=== PATIENT | female | born 1935 | race African-American/Black ===

== ENCOUNTER 2018-02-28 10:51 | Inpatient (IN) | payer OTHER ==
[~2018-02-28] VITALS: Ht 167.6 cm; Wt 94.4 kg
[2018-02-28] MEDS ORDERED: SODIUM CHLORIDE 0.9% 1000ML 1,000 ML IV STA (11:17)
[2018-02-28 11:41] LABS: BASOPHILS % 0.7 % (0.0-1.0); EOSINOPHILS # (AUTO) 0.1 (0.0-0.4); EOSINOPHILS % 1.4 % (0.0-6.0); HEMATOCRIT 45.7 % (34.2-44.1); LYMPHOCYTES # (AUTO) 1.8 (1.0-3.2); LYMPHOCYTES % 43.4 % (18.0-39.1); MEAN CORPUSCULAR HEMOGLOBIN 25.5 pg (28-32); MEAN CORPUSCULAR HGB CONC 32.8 g/dL (31-35); MEAN CORPUSCULAR VOLUME 77.6 fL (81-99); MONOCYTES # (AUTO) 0.6 (0.2-0.8); MONOCYTES % 14.9 % (4.4-11.3); NEUTROPHILS # (AUTO) 1.7 (2.1-6.9); NEUTROPHILS % 39.4 % (38.7-80.0); PLATELET COUNT 107 x10e3/uL (140-360); RED BLOOD COUNT 5.89 x10e6/uL (3.6-5.1); RED CELL DISTRIBUTION WIDTH 15.4 % (11.7-14.4)
[2018-02-28 12:02] LABS: ALANINE AMINOTRANSFERASE 9 IU/L (0-55); ALBUMIN 3.4 g/dL (3.5-5.0); ALBUMIN/GLOBULIN RATIO 0.9 (0.8-2.0); ALKALINE PHOSPHATASE 82 IU/L (40-150); AMYLASE 121 U/L (25-125); ANION GAP 11.8 mmol/L (8-16); BLOOD UREA NITROGEN 13 mg/dL (7-26); BUN/CREATININE RATIO 15 (6-25); CALCIUM 9.5 mg/dL (8.4-10.2); CARBON DIOXIDE 29 mmol/L (22-29); CHLORIDE 101 mmol/L (98-107); CREATINE KINASE 73 IU/L (29-168); CREATININE, SERUM 0.84 mg/dL (0.57-1.11); EST GLOMERULAR FILTRATION RATE > 60 ML/MIN (60-); GLUCOSE 121 mg/dL (74-118); LIPASE 517 U/L (8-78); POTASSIUM 3.8 mmol/L (3.5-5.1); SODIUM 138 mmol/L (136-145)
[2018-02-28 12:22] LABS: BILIRUBIN,URINE NEGATIVE (NEGATIVE); CLARITY,URINE CLEAR (CLEAR); COLOR,URINE YELLOW (YELLOW); KETONES,URINE NEGATIVE (NEGATIVE); LEUKOCYTE ESTERASE ,URINE NEGATIVE (NEGATIVE); NITRITE,URINE NEGATIVE (NEGATIVE); PROTEIN,URINE DIPSTICK NEGATIVE (NEGATIVE); URINE UROBILINOGEN 0.2 mg/dL (0.2 - 1)
[2018-02-28 12:35] LABS: EPITHELIAL CELLS,URINE RARE /LPF
[2018-02-28 12:51] LABS: INR 0.91; PROTHROMBIN TIME 13.1 seconds (11.9-14.5)
--- NOTE | 2018-02-28 14:54 | Diagnostic Imaging Report ---
Examination: Single AP view of the chest. COMPARISON: None. INDICATION: Pancreatitis DISCUSSION: Lungs are well-inflated. Retrocardiac airspace disease with loss of the medial hemidiaphragmatic contour. Otherwise clear lungs. Enlargement of the cardiac silhouette with tortuous thoracic aorta. No acute osseous abnormality. IMPRESSION: Retrocardiac airspace disease may reflect atelectasis or aspiration. Cardiomegaly without vascular decompensation. Signed by: Dr. Wilner Livingston M.D. on 02/28/2018 2:51 PM
--- NOTE | 2018-02-28 15:15 | Diagnostic Imaging Report ---
EXAMINATION: CT of the abdomen and pelvis with contrast. TECHNIQUE: Spiral CT images of the abdomen and pelvis were performed from the lung bases to the lesser trochanters after the intravenous administration of 100 cc of Isovue-370 and the oral administration of water. Coronal and sagittal reformatted images were obtained. COMPARISON: None. CLINICAL HISTORY:Pancreatitis, left upper quadrant pain DISCUSSION: ABDOMEN/PELVIS: LOWER THORAX:Partial left lower lobe collapse partially visualized. Trace left pleural effusion. HEPATOBILIARY: No focal hepatic lesion. No intrahepatic biliary ductal dilatation area of the gallbladder is unremarkable. SPLEEN: No splenomegaly. Small splenule adjacent to the lower pole. PANCREAS: Ill-defined hypoattenuating mass in the pancreatic head best seen on series 2 image 40 measures approximately 1.6 cm craniocaudal x 1.3 cm AP x 1.9 cm transverse and results in dilatation of the main pancreatic duct upstream from the lesion. The mass contacts the superior mesenteric vein with less than 180 degrees of encasement. The fat plane between the mass and the superior mesenteric artery appears preserved. No peripancreatic inflammation. ADRENALS: No adrenal nodules. KIDNEYS/URETERS: No hydronephrosis. 3-4 mm left renal calculus, nonobstructing. Multiple simple left renal cysts measuring up to 6 cm projecting from the lower pole. Additional subcentimeter hypoattenuating lesions are too small to further characterize though may represent additional small cysts. Subcentimeter hyperattenuating lesion projecting from the upper pole of the left kidney seen on series 2 image 20. PELVIC ORGANS/BLADDER: The urinary bladder is incompletely distended but otherwise unremarkable. Uterus is not identified and has presumably been removed. No adnexal mass. PERITONEUM/RETROPERITONEUM: Trace pelvic ascites, average attenuation 5-10 Hounsfield units. No pneumoperitoneum. LYMPH NODES: No pelvic sidewall, retroperitoneal, or mesenteric lymphadenopathy. VESSELS: There is atherosclerotic calcification of the abdominal aorta, major branch vessels, and iliac arterial systems, without abdominal aortic aneurysm. Portal vein and splenic vein are patent. GI TRACT: The large bowel shows no distention or wall thickening. There are innumerable sigmoid diverticula without adjacent inflammatory change or extraluminal gas. The appendix is normal. There is no small bowel dilatation to suggest obstruction. BONES AND SOFT TISSUE: No osseous destructive lesion. Multilevel degenerative disc changes and facet arthropathy of the lumbar spine. No focal soft tissue abnormalities. IMPRESSION: 1.9 cm ill-defined hypoattenuating mass in the pancreatic head is highly concerning for adenocarcinoma and results in upstream pancreatic ductal dilatation. Gastroenterology consultation for potential endoscopic ultrasound with tissue sampling is suggested. No CT findings of acute pancreatitis per clinical query. Trace nonspecific ascites. Partial left lower lobe collapse with trace left pleural effusion may relate to mucous plugging/aspiration. Nonobstructing left renal calculus. Scattered low-attenuation renal lesions, likely cysts, with one hyperattenuating lesion in the left upper pole, which should be followed closely on subsequent cross-sectional imaging examinations. Large bowel diverticulosis without evidence of diverticulitis. Signed by: Dr. Wilner Livingston M.D. on 02/28/2018 3:12 PM
[2018-02-28] MEDS ORDERED: SODIUM CHLORIDE 0.9% 100 ML 100 ML ONE (15:32)
[2018-02-28] MEDS ORDERED: IOPAMIDOL 370 MG/ML 200 ML INFUS..BTL INJ ONE (15:32)
[2018-02-28] MEDS ORDERED: ONDANSETRON HCL INJ 2 MG/ML VIAL IV PRN (16:45)
--- OUTSIDE RECORDS SUMMARY | 2018-02-28 17:01 | XMS REPORT | Clinical Summary ---
Author Author [facility] Organization [facility] Address Unknown Phone Unavailable Care Team Providers Care Case Loader Operator Name Role Phone PCP Unavailable Allergies No Known Allergies Medications End Date Status Medication Sig Dispensed Refills Start Date Active traMADol (ULTRAM) 50 mg Take 1 tablet 20 tablet 0 tabletIndications: by mouth 8 Generalized abdominal every 6 hours pain, Acute pancreatitis, as needed for unspecified complication Pain. status, unspecified pancreatitis type Active Problems Problem Noted Date Essential hypertension 02/22/2018 Carpal tunnel syndrome 02/22/2018 History of tubal ligation 02/22/2018 Encounters Care Team Description Date Type Specialty Emily Hurley MD Generalized abdominal pain (Primary Dx); Carpal tunnel syndrome of left wrist; Acute pancreatitis, unspecified complication status, unspecified pancreatitis type 02/22/2018 Emergency Emergency Medicine 02/22/2018 Travel after 02/27/2017 Social History Date Tobacco Use Types Packs/Day Years Used Started: 02/22/1953 Current Every Day Smoker Cigarettes 2 Smokeless Tobacco: Never Used Tobacco Cessation: Ready to Quit: Yes; Counseling Given: Yes Alcohol Use Drinks/Week oz/Week Comments Not Currently Sex Assigned at Date Recorded Not on file Industry Job Start Date Occupation Not on file Not on file Not on file Travel End Travel History Travel Start No recent travel history available. Last Filed Vital Signs Time Taken Vital Sign Reading 02/22/2018 12:00 PM CHARTER REPRESENTATIVE Blood Pressure 170/102 02/22/2018 12:00 PM CHARTER REPRESENTATIVE Pulse 52 02/22/2018 12:00 PM CHARTER REPRESENTATIVE Temperature 36.8 C (98.3 F) 02/22/2018 12:00 PM CHARTER REPRESENTATIVE Respiratory Rate 13 02/22/2018 12:00 PM CHARTER REPRESENTATIVE Oxygen Saturation 97% - Inhaled Oxygen - Concentration - Weight - - Height - - Body Mass Index - Plan of Treatment Health Maintenance Due Date Last Done Comments IMM Pneumococcal Age 65 2002 and Up IMM Influenza Seasonal 12/12/2017 Oct to May (>/=19 yrs) Procedures Comments Procedure Name Priority Date/Time Associated Diagnosis CT ABDOMEN AND PELVIS STAT 02/22/2018 Generalized abdominal CONTRAST 9:05 AM CHARTER REPRESENTATIVE pain XRAY NECK SOFT TISSUE STAT 02/22/2018 Carpal tunnel syndrome of 8:36 AM CHARTER REPRESENTATIVE left wrist TROPONIN I POC Routine 02/22/2018 7:10 AM CHARTER REPRESENTATIVE XRAY CHEST 1 VIEW STAT 02/22/2018 Generalized abdominal 6:35 AM CHARTER REPRESENTATIVE pain 12 LEAD EKG Routine 02/22/2018 5:43 AM CHARTER REPRESENTATIVE TSH Routine 02/22/2018 5:29 AM CHARTER REPRESENTATIVE HIV-1/HIV-2 ROUTINE Routine 02/22/2018 SCREENING 5:29 AM CHARTER REPRESENTATIVE UA CHEMISTRIES STAT 02/22/2018 5:29 AM CHARTER REPRESENTATIVE LIPASE STAT 02/22/2018 5:29 AM CHARTER REPRESENTATIVE COMPREHENSIVE METABOLIC STAT 02/22/2018 PANEL(DBIL NOT INCLUDED) 5:29 AM CHARTER REPRESENTATIVE CBC STAT 02/22/2018 5:29 AM CHARTER REPRESENTATIVE after 02/27/2017 Results * CT ABDOMEN AND PELVIS CONTRAST (02/22/2018 9:05 AM CHARTER REPRESENTATIVE) Impressions Performed At IMPRESSION: SMS 1.Stranding and trace fluid around the pancreatic tail are suspicious for pancreatitis. Note is made of severely elevated lipase in patient's EMR. 2.Nonobstructive 5 mm calculus at the left inferior pole collecting system. 3.Moderate degenerative changes of the lumbar spine. 4.Colonic diverticulosis. I have reviewed the study and agree with the findings in this report. Signed By: Tadeo Oropeza MD, 02/22/2018 9:41 AM Narrative Performed At EXAM: CT ABDOMEN AND PELVIS WITH CONTRAST SMS DATE: 02/22/2018 9:07 AM INDICATION: abd pain constipation nausea. Generalized abdominal pain ADDITIONAL INFORMATION: Lipase is 1072, upper limit of normal is 81. COMPARISON: None. TECHNIQUE: Volumetric CT of the abdomen and pelvis is acquired following the intravenous administration of contrast. Axial, coronal and sagittal images are provided. IV contrast: 100 ml [id number] Enteric contrast: None. DLP: 957.28 mGy-cm FINDINGS: Lines, tubes and hardware: None. Lower thorax: Linear atelectasis or scarring in the medial left lower lobe. No pleural effusion. Liver: Normal. Biliary tree: No intra- or extrahepatic biliary ductal dilation. Gallbladder: Normal. Pancreas: Fat stranding and trace fluid around the tail of the pancreas (image 30 series 3). Mild prominence of the pancreatic duct, measuring 3 mm. Spleen: Normal. Small splenule seen on image 29 series 3. Adrenals: Left abnormal gland is thickened, with preserved morphology. Right adrenal gland appears normal. Kidneys and ureters: Simple cysts in bilateral kidneys, measuring up to 7.6 cm CC in the left kidney. 5 mm nonobstructive calculus in the left lower pole collecting system (image 34 series 3). Bladder: Normal. Reproductive organs: Uterus is surgically absent. No adnexal abnormalities. Gastrointestinal tract: Stomach: Normal. Small bowel: Normal. Colon: Sigmoid colonic diverticula are present. Appendix: Normal (image 69 series 3). Peritoneum, mesentery and retroperitoneum: No free air, ascites or loculated fluid. Lymph nodes: Normal. Vasculature: Aorta and branches: Normal. IVC and veins: Normal. Portal vasculature: Normal. Bones: No acute abnormality. Moderate degenerative changes in the lumbar spine. Grade 1 anterolisthesis of L4 on L5, and of L5 on S1. Severe bilateral facet hypertrophy at L3-4, L4-5, L5-S1. Soft tissues: Normal. Procedure Note Interface, Rad/Mammog In - 02/22/2018 9:46 AM CHARTER REPRESENTATIVE EXAM: CT ABDOMEN AND PELVIS WITH CONTRAST DATE: 02/22/2018 9:07 AM INDICATION: abd pain constipation nausea. Generalized abdominal pain ADDITIONAL INFORMATION: Lipase is 1072, upper limit of normal is 81. COMPARISON: None. TECHNIQUE: Volumetric CT of the abdomen and pelvis is acquired following the intravenous administration of contrast. Axial, coronal and sagittal images are provided. IV contrast: 100 ml [id number] Enteric contrast: None. DLP: 957.28 mGy-cm FINDINGS: Lines, tubes and hardware: None. Lower thorax: Linear atelectasis or scarring in the medial left lower lobe. No pleural effusion. Liver: Normal. Biliary tree: No intra- or extrahepatic biliary ductal dilation. Gallbladder: Normal. Pancreas: Fat stranding and trace fluid around the tail of the pancreas (image 30 series 3). Mild prominence of the pancreatic duct, measuring 3 mm. Spleen: Normal. Small splenule seen on image 29 series 3. Adrenals: Left abnormal gland is thickened, with preserved morphology. Right adrenal gland appears normal. Kidneys and ureters: Simple cysts in bilateral kidneys, measuring up to 7.6 cm CC in the left kidney. 5 mm nonobstructive calculus in the left lower pole collecting system (image 34 series 3). Bladder: Normal. Reproductive organs: Uterus is surgically absent. No adnexal abnormalities. Gastrointestinal tract: Stomach: Normal. Small bowel: Normal. Colon: Sigmoid colonic diverticula are present. Appendix: Normal (image 69 series 3). Peritoneum, mesentery and retroperitoneum: No free air, ascites or loculated fluid. Lymph nodes: Normal. Vasculature: Aorta and branches: Normal. IVC and veins: Normal. Portal vasculature: Normal. Bones: No acute abnormality. Moderate degenerative changes in the lumbar spine. Grade 1 anterolisthesis of L4 on L5, and of L5 on S1. Severe bilateral facet hypertrophy at L3-4, L4-5, L5-S1. Soft tissues: Normal. IMPRESSION IMPRESSION: 1. Stranding and trace fluid around the pancreatic tail are suspicious for pancreatitis. Note is made of severely elevated lipase in patient's EMR. 2. Nonobstructive 5 mm calculus at the left inferior pole collecting system. 3. Moderate degenerative changes of the lumbar spine. 4. Colonic diverticulosis. I have reviewed the study and agree with the findings in this report. Signed By: Tadeo Oropeza MD, 02/22/2018 9:41 AM Performing Organization Address City/State/Zipcode Phone Number SMS * XRAY NECK SOFT TISSUE (02/22/2018 8:36 AM CHARTER REPRESENTATIVE) Impressions Performed At IMPRESSION: SMS 1.No acute abnormality identified in the cervical spine, limited by modality. 2.Moderate degenerative changes. Complete evaluation of the cervical spine including neural foramina can be performed with nonemergent MRI. Signed By: Tadeo Oropeza MD, 02/22/2018 8:40 AM Narrative Performed At EXAM: XR NECK SOFT TISSUES 2 VIEWS SMS DATE: 02/22/2018 8:36 AM INDICATION: Neck stiffness/left arm pain+numbness. Carpal tunnel syndrome of left wrist COMPARISON: None TECHNIQUE:AP and lateral radiographs of the neck soft tissues FINDINGS: Prevertebral soft tissue contours are within normal limits. There is no tracheal narrowing or deviation. No radiopaque foreign body or abnormal calcification is identified. Multilevel disc space narrowing and marginal osteophyte formation. Moderate multilevel bilateral facet hypertrophy. Procedure Note Interface, Rad/Mammog In - 02/22/2018 8:45 AM CHARTER REPRESENTATIVE EXAM: XR NECK SOFT TISSUES 2 VIEWS DATE: 02/22/2018 8:36 AM INDICATION: Neck stiffness/left arm pain+numbness. Carpal tunnel syndrome of left wrist COMPARISON: None TECHNIQUE: AP and lateral radiographs of the neck soft tissues FINDINGS: Prevertebral soft tissue contours are within normal limits. There is no tracheal narrowing or deviation. No radiopaque foreign body or abnormal calcification is identified. Multilevel disc space narrowing and marginal osteophyte formation. Moderate multilevel bilateral facet hypertrophy. IMPRESSION IMPRESSION: 1. No acute abnormality identified in the cervical spine, limited by modality. 2. Moderate degenerative changes. Complete evaluation of the cervical spine including neural foramina can be performed with nonemergent MRI. Signed By: Tadeo Oropeza MD, 02/22/2018 8:40 AM Performing Organization Address City/State/[facility] [[email or web address] Phone Number SMS * TROPONIN I POC (02/22/2018 7:10 AM CHARTER REPRESENTATIVE) Troponin POC 0.01 0.00 - 0.08 ng/mL [facility] 1 Performing Organization Address [facility] [[email or web address] Phone Number MISYS [facility] 1 * XRAY CHEST 1 VIEW (02/22/2018 6:35 AM CHARTER REPRESENTATIVE) Impressions Performed At IMPRESSION: SMS 1. Mild cardiomegaly 2. Hyperinflation of the lung field and left lower lung field platelike atelectasis 3. Otherwise, no acute cardiac or pulmonary pathology is identified in the chest. Signed By: Tucker Back MD, 02/22/2018 6:41 AM Narrative Performed At EXAM: XR CHEST 1 VIEW [facility] DATE:02/22/20186:28 AM INDICATION: abd pain Generalized abdominal pain COMPARISON: None similar TECHNIQUE: Portable semi-erect AP view DISCUSSION: Lines/tubes/devices: None Heart and mediastinum: The cardiac silhouette is slightly enlarged. The thoracic aorta is tortuous. Lungs and pleura: There is hyperinflation of the lung cho. The lung cho are clear of consolidation or effusion. There is platelike atelectasis in the left lower lung field. Pulmonary vascularity is normal. Bones/soft tissues: There is moderate spur formation of the dorsal vertebrae. There are degenerative changes involving the right shoulder. Upper abdomen: Unremarkable Procedure Note Interface, Rad/Mammog In - 02/22/2018 7:07 AM CHARTER REPRESENTATIVE EXAM: XR CHEST 1 VIEW DATE: 02/22/2018 6:28 AM INDICATION: abd pain Generalized abdominal pain COMPARISON: None similar TECHNIQUE: Portable semi-erect AP view DISCUSSION: Lines/tubes/devices: None Heart and mediastinum: The cardiac silhouette is slightly enlarged. The thoracic aorta is tortuous. Lungs and pleura: There is hyperinflation of the lung cho. The lung cho are clear of consolidation or effusion. There is platelike atelectasis in the left lower lung field. Pulmonary vascularity is normal. Bones/soft tissues: There is moderate spur formation of the dorsal vertebrae. There are degenerative changes involving the right shoulder. Upper abdomen: Unremarkable IMPRESSION IMPRESSION: 1. Mild cardiomegaly 2. Hyperinflation of the lung field and left lower lung field platelike atelectasis 3. Otherwise, no acute cardiac or pulmonary pathology is identified in the chest. Signed By: Tucker Back MD, 02/22/2018 6:41 AM Performing Organization Address City/State/Zipcode Phone Number [facility] * 12 LEAD EKG (02/22/2018 5:43 AM CHARTER REPRESENTATIVE) [facility] Test Date:2018-02-22 Pat Name: SOLO SAEZ Department: 6520 Room: Gender: F Flue Gas Analyst: [id number] :1936-0 06-05 Requested By: EMILY Brady Order Number: [id number] Natalie MD: Kvng CROFT Measurements Intervals Crane Rate: 55 P:3 WA: 180 QRS: -10 QRSD: 95 T:121 QT: 415 QTc:398 Interpretive Statements SINUS BRADYCARDIA Poor anterior R wave progression MODERATE T-WAVE ABNORMALITY, CONSIDER LATERAL ISCHEMIA Abnormal ECG Electronically Signed On 02-22-2018 9:45:15 CHARTER REPRESENTATIVE by Kvng CROFT Performing Organization Address [facility] [[email or web address] Phone Number SMS * HIV-1/HIV-2 ROUTINE SCREENING (02/22/2018 5:29 AM CHARTER REPRESENTATIVE) HIV-1/HIV-2 Negative NEG [facility] Performing Organization Address [facility] [[email or web address]]code Phone Number MISMICK [facility] * COMPREHENSIVE METABOLIC PANEL(DBIL NOT INCLUDED) (02/22/2018 5:29 AM CHARTER REPRESENTATIVE) Albumin 3.9 3.7 - 5.3 g/dL [facility] 1 Calcium 9.9 8.6 - 10.3 mg/dL [facility] 1 CO2 29 21 - 31 mmol/L [facility] 1 Chloride 101 98 - 107 mmol/L [facility] 1 Creatinine 0.90 0.6 - 1.2 mg/dL [facility] 1 Glucose 124 (H) 70 - 110 mg/dL [facility] 1 Alk Phos 86 34 - 104 U/L [facility] 1 Potassium 3.9 3.5 - 5.1 mmol/L [facility] 1 Sodium 136 136 - 145 mmol/L [facility] 1 ALT 9 7 - 52 U/L [facility] 1 AST 12 (L) 13 - 39 U/L [facility] 1 Urea Nitrogen 19 7 - 25 mg/dL [facility] 1 T Bilirubin 0.3 0.2 - 1.0 mg/dL [facility] 1 T Protein 6.8 6.4 - 8.2 g/dL [facility] 1 GFR, Estimated >60 mL/min/1.73 m2 [facility] 1 GFR, Estim, >60 mL/min/1.73 m2 [facility] Afr-Am [facility] 1 Anion Gap 6 [facility] 1 Specimen Blood Performing Organization Address [facility] [[email or web address] Phone Number MISYS [facility] 1 * TSH (02/22/2018 5:29 AM CHARTER REPRESENTATIVE) TSH 1.85 0.57 - 3.74 uIU/mL [facility] 1 Performing Organization Address City/[facility]/Zipcode Phone Number MISYS [facility] 1 * UA CHEMISTRIES (02/22/2018 5:29 AM CHARTER REPRESENTATIVE) Color Yellow [facility] 4 Clarity Clear [facility] 4 Spec Wadley 1.020 1.001 - 1.035 [facility] 4 pH 6.0 5 - 8 [facility] 4 Protein 1+ (A) NEG [facility] 4 Glucose Negative NEG [facility] 4 Ketone Negative NEG [facility] 4 Bilirubin Negative NEG [facility] 4 Nitrate Negative NEG [facility] 4 Urobilinogen 1.0 0.2 - 1.0 EU/dL [facility] 4 Leukocyte Negative NEG [facility] 4 Blood Negative NEG [facility] 4 RBC 2 0 - 4 /HPF [facility] 4 WBC 1 0 - 5 /HPF [facility] 4 Bacteria Few [facility] 4 Epithelial Cell 2 /HPF [facility] 4 Mucous Present [facility] 4 Hyaline Cast 17 /LPF [facility] 4 Specimen Urine Performing Organization Address [facility] [[email or web address]]code Phone Number [facility] 4 * LIPASE (02/22/2018 5:29 AM CHARTER REPRESENTATIVE) Lipase 1,072 (H) 11 - 81 U/L [facility] 1 Specimen Blood Performing Organization Address [facility] [[email or web address]]code Phone Number [facility] 1 * CBC (02/22/2018 5:29 AM CHARTER REPRESENTATIVE) WBC 6.1 4.5 - 11.0 K/uL [facility] 2 RBC 5.88 (H) 4.20 - 5.40 M/uL [facility] 2 Hemoglobin 14.8 12.0 - 16.0 g/dL [facility] 2 Hematocrit 46.4 37.0 - 47.0 % [facility] 2 MCV 79 (L) 82 - 92 fL [facility] 2 MCH 25.2 (L) 27.0 - 32.0 pg [facility] 2 MCHC 31.9 (L) 32.0 - 36.0 g/dL [facility] 2 RDW 44.9 36.4 - 46.3 fL [facility] 2 Platelet 134 (L) 150 - 400 K/uL [facility] 2 Mean Platelet 12.2 9.4 - 12.4 fL [facility] Volume [facility] 2 Percent NRBC 0.0 [facility] 2 Absolute NRBC 0.00 [facility] 2 Specimen Blood Performing Organization Address City/State/Zipcode Phone Number [facility] 2 after 02/27/2017 Insurance Type Payer Benefit Subscriber ID Effective Phone Address Plan / Dates Group [facility] [place]-P [phone] [facility] [id number] [address] [place] [address]
--- OUTSIDE RECORDS SUMMARY | 2018-02-28 17:01 | XMS REPORT ---
[facility] Address Unknown Phone Unavailable Care Team Providers Care Corporate Travel Expert Name Role Phone Manny NUÑEZ Unavailable Unavailable Problems This patient has no known problems. Allergies, Adverse Reactions, Alerts This patient has no known allergies or adverse reactions. Medications This patient has no known medications. Encounters Start Date/Time End Date/Time Encounter Type Admission Type Attending [facility] Care Department Encounter ID 2018-02-22 08:23:46 2018-02-22 08:23:46 Emergency [facility] [id number] 2018-02-22 07:53:28 2018-02-22 07:53:28 Emergency [facility] [id number] 2018-02-22 05:52:24 2018-02-22 05:52:24 Emergency [facility] [id number] 2018-02-22 04:51:11 2018-02-22 04:51:11 Emergency [facility] [id number] Results Test Description Test Time Test Comments Text Results Atomic Results Result Comments CT ABDOMEN/PELVIS W 2018-02-28 14:55:00 [place] [id number] Patient Name: SOLO SHARIF MR #: [id number] : 1935 Age/Sex: 82/F Req #: [id number] Adm Physician: Ordered by: CORINE BHATT JAVA GROOVY DEVELOPER Report #: [id number] Location: ER Room/Bed: Procedure: [id number] CT/CT ABDOMEN/PELVIS W Exam Date: 02/28/18 Exam Time: 1330 REPORT STATUS: Signed EXAMINATION: CT of the abdomen and pelvis with contra st. TECHNIQUE: Spiral CT images of the abdomen and pelvis were performed from the lung bases to the lesser trochanters after the intravenous administration of 100 cc of Isovue-370 and the oral administration of water. Coronal and sagittal reformatted images were obtained. COMPARISON: None. CLINICAL HISTORY:Pancreatitis, left upper quadrant pain DISCUSSION: ABDOMEN/PELVIS: LOWER THORAX:Partial left lower lobe collapse partially visualized. Trace left pleural effusion. HEPATOBILIARY: No focal hepatic lesion. No intrahepatic biliary ductal dilata tion area of the gallbladder is unremarkable. SPLEEN: No splenomegaly. Small splenule adjacent to the lower pole. PANCREAS: Ill- defined hypoattenuating mass in the pancreatic head best seen on series 2 image 40 measures approximately 1.6 cm craniocaudal x 1.3 cm AP x 1.9 cm transverse and results in dilatation of the main pancreatic duct upstream from the lesion. The mass contacts the superior mesenteric vein with less than 180 degrees of encasement. The fat plane between the mass and the superior mesenteric artery appears preserved. No peripancreatic inflammation. ADRENALS: No adrenal nodules. KIDNEYS/URETERS: No hydronephrosis. 3-4 mm left renal calculus, nonobstructing. Multiple simple left renal cysts measuring up to 6 cm projecting from the lower pole. Additional subcentimeter hypoattenuating lesions are too small to further characterize though may represent additional small cysts. Subcentimeter hyperattenuating lesion projecting from the upper pole of the left kidney seen on series 2 image 20. PELVIC ORGANS/BLADDER: The urinary bladder is incompletely distended but otherwise unremarkable. Uterus is not identified and has presumably been removed. No adnexal mass. PERITONEUM/RETROPERITONEUM: Trace pelvic ascites, average attenuation 5-10 Hounsfield units. No pneumoperitoneum. LYMPH NODES: No pelvic sidewall, retroperitoneal, or mesenteric lymphadenopathy. VESSELS: There is atherosclerotic calcification of the abdominal aorta, major branch vessels, and iliac arterial systems, without abdominal aortic aneurysm. Portal vein and splenic vein are patent. GI TRACT: The large bowel shows no distention or wall thickening. There are innumerable sigmoid diverticula without adjacent inflammatory change or extraluminal gas. The appendix is normal. There is no small bowel dilatation to suggest obstruction. BONES AND SOFT TISSUE: No osseous destructive lesion. Multilevel degenerative disc changes and facet arthropathy of the lumbar spine. No focal soft tissue abnormalities. IMPRESSION: 1.9 cm ill-defined hypoattenuating mass in the pancreatic head is highly concerning for adenocarcinoma and results in upstream pancreatic ductal dilatation. Gastroenterology consultation for potential endoscopic ultrasound with tissue sampling is suggested. No CT findings of acute pancreatitis per clinical query. Trace nonspecific ascites. Partial left lower lobe collapse with trace left pleural effusion may relate to mucous plugging/aspiration. Nonobstructing left renal calculus. Scattered low-attenuation renal lesions, likely cysts, with one hyperattenuating lesion in the left upper pole, which should be followed closely on subsequent cross-sectional imaging examinations. Large bowel diverticulosis without evidence of diverticulitis. Signed by: Dr. Maryann Luciano M.D. on 02/28/2018 3:12 PM Dictated By: MARYANN LUCIANO MD 1512 Transcribed By: GREGORY on 02/28/18 1512 COPY TO: CORINE BHATT JAVA GROOVY DEVELOPER CHEST SINGLE (PORTABLE) 2018-02-28 14:50:00 [place] [address] Patient Name: SOLO SHARIF MR #: [id number] : 1935 Age/Sex: 82/F Req #: [id number] Adm Physician: Ordered by: CORINE BHATT JAVA GROOVY DEVELOPER Report #: [id number] Location: ER Room/Bed: Procedure: [id number] DX/CHEST SINGLE (PORTABLE) Exam Date: 02/28/18 Exam Time: 1400 REPORT STATUS: Signed Examination: Single AP view of the chest. CO MPARISON: None. INDICATION: Pancreatitis DISCUSSION: Lungs are well-inflated. Retrocardiac airspace disease with loss of the medial hemidiaphragmatic contour. Otherwise clear lungs. Enlargement of the cardiac silhouette with tortuous thoracic aorta. No acute osseous abnormality. IMPRESSION: Retrocardiac airspace disease may reflect atelectasis or aspiration. Cardiomegaly without vascular decompensation. Signed by: Dr. Maryann Luciano M.D. on 02/28/2018 2:51 PM Dictated By: MARYANN LUCIANO MD 1451 Transcribed By: GREGORY on 02/28/18 145 COPY TO: CORINE BHATT NP
[2018-02-28] MEDS ORDERED: ATENOLOL50 MG PO (17:09)
[2018-02-28] MEDS ORDERED: AMLODIPINE BESYL5 MG PO (17:09)
[2018-02-28] MEDS ORDERED: LISINOPRIL-HCT1 EAC1 PO (17:09)
[2018-02-28] MEDS: SODIUM CHLORIDE 0.9% 1000ML 1,000 ML IV SCH ×2 (17:25→23:00)
[2018-02-28] MEDS ORDERED: CEFTRIAXONE SOD 1 GM VIAL IV SCH (17:30)
--- NOTE | 2018-02-28 17:30 | NUR ---
DR. MCFARLAND HERE TO EVAL PT.
[2018-02-28] MEDS: AZITHROMYCIN 500MG/NS 250 ML 250 ML IV SCH (18:09)
[2018-02-28] MEDS: CEFTRIAXONE SOD 1 GM/NS 50 ML 50 ML IV SCH (18:09)
--- NOTE | 2018-02-28 18:10 | NUR ---
RT notified of ordered breathing treatments
[2018-02-28] MEDS: ALBUTEROL/IPRATROPIUM 3 ML NEB NEB SCH ×2 (18:55→22:45)
--- NOTE | 2018-02-28 19:00 | NUR ---
Walking rounds with SHASHI Flores. Patient in no distress at this time.
--- NOTE | 2018-02-28 20:40 | NUR ---
Patient arrived to the unit to Rm. 294 via wheelchair escorted by ER transport. Patient alert and oriented x3. No distress or discomfort noted. Received phone call from ED nurse (SHASHI Flores) to inform that she spoke to Dr. Montoya (admitting MD) that patient needs to take all her home meds tonight. Order acknowledged by receiving nurse (Renzo).
[2018-02-28] MEDS ORDERED: HYDRALAZINE HCL 20 MG/ML VIAL IV PRN (20:45)
[2018-02-28] MEDS: HYDROCHLOROTHIAZIDE 25 MG TAB PO SCH (21:15)
[2018-02-28] MEDS: ATENOLOL 50 MG TAB PO SCH (21:19)
[2018-02-28] MEDS: LISINOPRIL 20 MG TAB PO SCH (21:19)
[2018-02-28] MEDS: AMLODIPINE BESYLATE 5 MG TAB PO SCH (21:19)
[2018-02-28 21:30] VITALS: BP 183/86
--- NOTE | 2018-02-28 21:30 | NUR ---
Patient arrived to unit via wheelchair from ED as new admit. Patient alert and oriented x3. Ambulatory with standby assist. Patient denies any pain or discomfort at this time. BP elevated at 183/86. Dr. Montoya aware and requested for patient to have home meds (cardiac meds) tonight. Nurse (Renzo) to medicate patient and will monitor pt closely.
[2018-02-28 22:00] VITALS: BP 183/86
[2018-02-28 22:23] VITALS: BP 177/78
--- NOTE | 2018-02-28 22:23 | NUR ---
BP re-checked after pt received BP meds (Atenolol, Norvasc, Lisinopril, HCTZ). BP at this time was 177/78 and seem trending down. Will keep monitor BP of patient.
[2018-03-01] VITALS (9 sets, daily range): BP systolic 130–180; BP diastolic 60–84
[2018-03-01 05:54] LABS: BASOPHILS % 0.9 % (0.0-1.0); EOSINOPHILS # (AUTO) 0.1 (0.0-0.4); EOSINOPHILS % 1.3 % (0.0-6.0); HEMATOCRIT 43.3 % (34.2-44.1); HEMOGLOBIN 14.2 g/dL (12.0-16.0); LYMPHOCYTES # (AUTO) 1.6 (1.0-3.2); LYMPHOCYTES % 36.4 % (18.0-39.1); MEAN CORPUSCULAR HEMOGLOBIN 25.2 pg (28-32); MEAN CORPUSCULAR HGB CONC 32.8 g/dL (31-35); MEAN CORPUSCULAR VOLUME 76.8 fL (81-99); MONOCYTES # (AUTO) 0.5 (0.2-0.8); MONOCYTES % 11.3 % (4.4-11.3); NEUTROPHILS # (AUTO) 2.2 (2.1-6.9); NEUTROPHILS % 49.9 % (38.7-80.0); PLATELET COUNT 74 x10e3/uL (140-360); RED BLOOD COUNT 5.64 x10e6/uL (3.6-5.1); RED CELL DISTRIBUTION WIDTH 15.4 % (11.7-14.4)
[2018-03-01 06:09] LABS: ANION GAP 14.3 mmol/L (8-16); BLOOD UREA NITROGEN 8 mg/dL (7-26); BUN/CREATININE RATIO 11 (6-25); CALCIUM 9.1 mg/dL (8.4-10.2); CARBON DIOXIDE 23 mmol/L (22-29); CHLORIDE 102 mmol/L (98-107); CREATININE, SERUM 0.72 mg/dL (0.57-1.11); EST GLOMERULAR FILTRATION RATE > 60 ML/MIN (60-); GLUCOSE 134 mg/dL (74-118); LIPASE 510 U/L (8-78); POTASSIUM 3.3 mmol/L (3.5-5.1); SODIUM 136 mmol/L (136-145)
--- NOTE | 2018-03-01 07:40 | NUR ---
PATIENT IN BED RESTING WITH NO RESPIRATORY DISTRESS. IV FLUID INFUSING ORDERED. BED IN LOWER POSITION, CALL LIGHT AT REACH.
[2018-03-01] MEDS: ALBUTEROL/IPRATROPIUM 3 ML NEB NEB SCH ×4 (08:30→23:10)
[2018-03-01] MEDS ORDERED: AMLODIPINE BESYLATE 5 MG TAB PO SCH (09:00)
[2018-03-01] MEDS ORDERED: HYDROCHLOROTHIAZIDE 25 MG TAB PO SCH (09:00)
[2018-03-01] MEDS ORDERED: ENOXAPARIN SOD INJ 40 MG/0.4 ML SYR SC SCH (09:00)
[2018-03-01] MEDS ORDERED: LISINOPRIL 20 MG TAB PO SCH (09:00)
[2018-03-01] MEDS: HYDROCHLOROTHIAZIDE 25 MG TAB PO SCH (09:10)
[2018-03-01] MEDS: AMLODIPINE BESYLATE 5 MG TAB PO SCH (09:10)
[2018-03-01] MEDS: ATENOLOL 50 MG TAB PO SCH (09:11)
[2018-03-01] MEDS: LISINOPRIL 20 MG TAB PO SCH ×2 (09:11→17:47)
[2018-03-01] MEDS ORDERED: POTASSIUM CHLORIDE 20 MEQ TAB CR PO NR (10:30)
--- NOTE | 2018-03-01 11:20 | NUR ---
MD NOTIFIED OF ABNORMAL LAB RESULT, NEW ORDER RECEIVED AND IMPLEMENTED.
--- NOTE | 2018-03-01 15:40 | NUR ---
PATIENT ASSISTED WITH SHOWER, BACK TO BED WITH CALL LIGHT AT REACH. FAMILY MEMBERS AT BED SIDE.
[2018-03-01] MEDS: AZITHROMYCIN 500MG/NS 250 ML 250 ML IV SCH (17:30)
[2018-03-01] MEDS: CEFTRIAXONE SOD 1 GM/NS 50 ML 50 ML IV SCH (17:48)
--- NOTE | 2018-03-01 19:15 | NUR ---
Received patient from day nurse, patient is alert and oriented x4, patient assessed, patient denies any concerns at this time, safety and fall precautions maintained as per hospital protocol: bed in lowest position and locked, needed items beside and call galvin placed within patient reach, patient instructed to use it to call nurses for any assistance needed, patient with yellow socks and falling star sign at the door to encouraged staff members to offer maximum help to patient.
--- NOTE | 2018-03-01 21:01 | NUR ---
Azithromycin iv was signed at this time but was administered by day nurse.
[2018-03-02] VITALS: BP 109/65
[2018-03-02 04:00] VITALS: BP 154/76
[2018-03-02 06:32] LABS: ANION GAP 13.6 mmol/L (8-16); BLOOD UREA NITROGEN 7 mg/dL (7-26); BUN/CREATININE RATIO 9 (6-25); CALCIUM 9.2 mg/dL (8.4-10.2); CARBON DIOXIDE 26 mmol/L (22-29); CHLORIDE 100 mmol/L (98-107); CREATININE, SERUM 0.79 mg/dL (0.57-1.11); EST GLOMERULAR FILTRATION RATE > 60 ML/MIN (60-); GLUCOSE 122 mg/dL (74-118); MAGNESIUM 2.2 MG/DL (1.3-2.1); POTASSIUM 3.6 mmol/L (3.5-5.1); SODIUM 136 mmol/L (136-145)
--- NOTE | 2018-03-02 06:39 | NUR ---
Dr. Montoya made aware of positive blood cultures. Ordered one time order of 1gm vancomycin
[2018-03-02 06:46] LABS: BASOPHILS % 0.9 % (0.0-1.0); EOSINOPHILS # (AUTO) 0.1 (0.0-0.4); EOSINOPHILS % 1.8 % (0.0-6.0); HEMATOCRIT 41.3 % (34.2-44.1); HEMOGLOBIN 13.8 g/dL (12.0-16.0); LYMPHOCYTES # (AUTO) 2.3 (1.0-3.2); LYMPHOCYTES % 49.6 % (18.0-39.1); MEAN CORPUSCULAR HEMOGLOBIN 25.6 pg (28-32); MEAN CORPUSCULAR HGB CONC 33.4 g/dL (31-35); MEAN CORPUSCULAR VOLUME 76.6 fL (81-99); MONOCYTES # (AUTO) 0.5 (0.2-0.8); MONOCYTES % 10.8 % (4.4-11.3); NEUTROPHILS # (AUTO) 1.7 (2.1-6.9); NEUTROPHILS % 36.9 % (38.7-80.0); PLATELET COUNT 101 x10e3/uL (140-360); RED BLOOD COUNT 5.39 x10e6/uL (3.6-5.1); RED CELL DISTRIBUTION WIDTH 15.7 % (11.7-14.4)
[2018-03-02] MEDS: ALBUTEROL/IPRATROPIUM 3 ML NEB NEB SCH ×2 (07:00→14:50)
[2018-03-02] MEDS ORDERED: VANCOMYCIN 1GM/NS 250 ML 250 ML IV ONE (07:00)
--- NOTE | 2018-03-02 07:00 | NUR ---
patient endorsed to next shift for continuity of care.
--- NOTE | 2018-03-02 07:00 | NUR ---
patient endorsed to next shift for continuity of care.
--- NOTE | 2018-03-02 07:28 | NUR ---
PATIENT SITTING UP IN BED WATCHING TV, NO COMPLAIN VOICED. ALL PERSONAL ITEMS CLOSE TO PATIENT. BED IN LOWER POSITION, CALL LIGHT AT REACH.
[2018-03-02 07:35] VITALS: BP 157/82
[2018-03-02 07:47] VITALS: BP 157/82
[2018-03-02] MEDS ORDERED: AMLODIPINE BESYLATE 5 MG TAB PO SCH (09:00)
[2018-03-02] MEDS ORDERED: AMLODIPINE BESYLATE 10 MG TAB PO SCH (09:00)
[2018-03-02] MEDS: LISINOPRIL 20 MG TAB PO SCH ×2 (09:25→17:37)
[2018-03-02 10:27] LABS: ANISOCYTOSIS SLIGHT; HYPOCHROMASIA SLIGHT; PLATELET ESTIMATE SLIGHTLY DECREASED; PLATELET MORPHOLOGY COMMENT NORMAL; RBC MORPHOLOGY COMMENT NORMAL; TARGET CELLS FEW
[2018-03-02 11:34] VITALS: BP 151/68
--- NOTE | 2018-03-02 15:24 | NUR ---
PATIENT ASSISTED TO THE RESTROOM AND BACK TO BED. CALL LIGHT AT REACH.
[2018-03-02 15:45] VITALS: BP 136/68
--- NOTE | 2018-03-02 17:15 | Discharge Summary ---
PRIMARY CARE DOCTOR: Dr. Brandy Benitez with [facility]. FINAL DIAGNOSIS: Pneumonia. SECONDARY DIAGNOSES 1. Mild chronic obstructive pulmonary disease exacerbation, resolved. 2. 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 3. Chronic thrombocytopenia, stable. 4. Hypertension, acceptable. CONSULTANTS: None. PROCEDURES/STUDIES PERFORMED: CT. HISTORY: Per H&P. HOSPITAL COURSE: Patient was put on IV Rocephin and azithromycin. She did well. Smoking cessation was advised. Patient will go home on Levaquin for 5 more days to complete a 1-week course. Her blood culture on admission 1 out of 2 bottles came back gram-positive cocci in clusters two days later. This is most likely contaminant. I have called microbiology. They will update me once this has finalized. I did empirically give her one dose of IV vancomycin. As far as her pancreatic tumor, I have communicated with her primary care doctor and he will arrange an endoscopic ultrasound with biopsy with [facility] doctor. Patient was seen and examined today. It took 32 minutes total to discharge this patient. CONDITION ON DISCHARGE: Improved. DISCHARGE MEDICATIONS: Please see medication reconciliation form. MARTINEZ MCFARLAND M.D. Job#: [id number] TA cc:BRANDY BENITEZ MD
[2018-03-02] MEDS ORDERED: LEVAQUIN500 MG PO (17:42)
[2018-03-02] MEDS ORDERED: LISINOPRIL10 MG PO (17:43)
[2018-03-02] MEDS ORDERED: AMLODIPINE BESY10 MG PO (17:43)
--- NOTE | 2018-03-02 18:40 | NUR ---
PATIENT DISCHARGED HOME. DISCHARGE INSTRUCTIONS, PRESCRIPTIONS, AND FOLLOW UP GIVEN TO PATIENT, SHE VERBALIZED UNDERSTANDING. IV TO RIGHT FOREARM REMOVED WITH TIP INTACT. ALL PERSONAL ITEMS TAKEN WITH PATIENT. LEFT UNIT ON WHEEL CHAIR TO FRONT LOBBY.
== END 2018-03-02 18:36 | disposition home or self-care (01) | DRG 190 ==
LOC: ER 10:51 → ERHOLD 16:38 → MED/SURG3 20:09
PROVIDERS: ADMIT Internal Medicine; ATTEND Internal Medicine
DX: J44.0 Chronic obstructive pulmonary disease with (acute) lower respiratory infection (principal); J18.9 Pneumonia, unspecified organism; J44.1 Chronic obstructive pulmonary disease with (acute) exacerbation; K86.9 Disease of pancreas, unspecified; D69.6 Thrombocytopenia, unspecified; I10 Essential (primary) hypertension; F17.210 Nicotine dependence, cigarettes, uncomplicated; Z88.2 Allergy status to sulfonamides
CPT/HCPCS: 36415; 71045; 74177; 80048; 80053; 81001; 82150; 82550; 82553; 83690; 83735; 83880; 84484; 85025; 85610; 85730; 87040; 87071; 87086; 87205; 93005; 94640; 99284; J0360; J0456; J0696; J2405; J3370; J7030; Q9967

== ENCOUNTER 2018-06-28 10:33 | Emergency (ER) | payer OTHER ==
[~2018-06-28] VITALS: Ht 167.6 cm; Wt 88.0 kg
[~2018-06-28 10:33] MED LIST: AMLODIPINE BESY10 MG PO; AMLODIPINE BESYL5 MG PO; ATENOLOL50 MG PO; LEVAQUIN500 MG PO; LISINOPRIL-HCT1 EAC1 PO; LISINOPRIL10 MG PO
--- OUTSIDE RECORDS SUMMARY | 2018-06-28 10:35 | XMS REPORT | Clinical Summary ---
Author Author BECKY Savorfull [employer]Guide [facility] Real[facility] Address Unknown Phone Unavailable Care Team Providers Care Industrial Editor Name Role Phone Pcp, No PCP Unavailable Allergies Comments Active Allergy Reactions Severity Noted Date Severe back muscle pain Other reaction(s): Codeine Codeine Other (See Medium 02/28/2018 Comments) Gabapentin Itching Medium 02/28/2018 Jaundice Sulfa (Sulfonamide Other (See Medium 02/28/2018 Antibiotics) Comments), Itching Medications End Date Status Medication Sig Dispensed Refills Start Date Active amLODIPine (NORVASC) 10 Take 10 mg by 0 MG tabletIndications: Pt mouth daily . doesn't know name of medications she took this morning. Active lisinopril Take 20 mg by 0 (PRINIVIL,ZESTRIL) 20 MG mouth 2 (two) tablet times daily. Active acetaminophen (TYLENOL) Take 650 mg 0 650 MG CR tablet by mouth. 8 Active predniSONE (DELTASONE) 20 Take 2 60 tablet 0 MG tablet tablets (40 9 mg total) by mouth daily. Active glimepiride (AMARYL) 2 MG Take 1 tablet 60 tablet 0 tablet (2 mg total) 9 by mouth daily with breakfast. Active pantoprazole (PROTONIX) Take 1 tablet 30 tablet 0 40 MG tablet (40 mg total) 9 by mouth daily. Active insulin glargine (LANTUS Inject 12 15 mL 2 SOLOSTAR U-100 INSULIN) Units 9 100 unit/mL (3 mL) InPn subcutaneousl y 2 (two) times daily. 05/24/2019 Active blood-glucose meter Use as 1 each 0 (GLUCOSE MONITORING KIT) instructed. 9 kit Active blood sugar diagnostic 1 strip by 200 strip 2 (FREESTYLE INSULINX TEST Miscellaneous 9 STRIPS) Strp route 4 (four) times daily before meals and nightly. Active lancets (ACCU-CHEK q ac and q 200 each 2 SOFTCLIX LANCETS) [facility] [place] 9 05/21/2018 Discontinued atenolol 12.5 MG halftab Take 50 mg by 0 half tablet mouth daily. 05/21/2018 Discontinued AMLODIPINE BESYLATE, 10 mg. 0 BULK, [facility] 05/21/2018 Discontinued AMLODIPINE BESYLATE, 5 mg. 0 BULK, [facility] 05/21/2018 Discontinued atenolol (TENORMIN) 50 MG Daily 0 tablet 05/21/2018 Discontinued diclofenac Take by 0 sodium/misoprostol mouth. (DICLOFENAC-MISOPROSTOL ORAL) 05/21/2018 Discontinued lisinopril Twice A Day 0 (PRINIVIL,ZESTRIL) 10 MG tablet 05/21/2018 Discontinued lisinopril-hydroCHLOROthi Daily 0 azide (PRINZIDE,ZESTORETIC) 20-25 mg per tablet 05/22/2018 Discontinued predniSONE (DELTASONE) 10 0 MG tablet 9 05/22/2018 Discontinued predniSONE (DELTASONE) 20 Take 40 mg by 0 MG tablet mouth. 9 05/22/2018 Discontinued traMADol (ULTRAM) 50 mg Take 50 mg by 0 tablet mouth. 8 05/24/2018 Discontinued predniSONE (DELTASONE) 20 Take 40 mg by 0 MG tablet mouth daily. 05/27/2018 polyethylene glycol Take 17 g by 14 each 0 (GLYCOLAX) 17 gram packet mouth daily 9 as needed (Constipation ) for up to 3 days. 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 (HCC) (Primary Dx); Malignant neoplasm of pancreas, unspecified location of malignancy (HCC); Steroid-induced diabetes (HCC); Hyperglycemia; Urinary frequency; Thrombocytopenia (HCC) 05/21/2018 [facility] General Internal Medicine - Encounter 05/24/2018 05/21/2018 Orders Only General Internal Medicine 05/21/2018 Travel Theodora Szymanski MD UPPER ENDOSCOPY,FNA W/ULTRASOUND 04/05/2018 Surgery Gastroenterology Javier Carranza MD 04/05/2018 Anesthesia Gastroenterology Event Theodora Szymanski MD 04/05/2018 Hospital Gastroenterology Encounter Resource, [employer] Phone 04/04/2018 Hospital Pre-Admission Testing Encounter after 06/27/2017 Family History Medical History Relation Name Comments Cancer Brother Relation Name Status Comments Brother Social History Date Tobacco Use Types Packs/Day Years Used Current Every Day Smoker 0.25 60 Smokeless Tobacco: Never Used Tobacco Cessation: Ready to Quit: Yes; Counseling Given: Yes Alcohol Use Drinks/Week oz/Week Comments No Alcohol Habits Answer Date Recorded How often do you have a drink containing alcohol? Never 04/04/2018 How many drinks containing alcohol do you have on Not asked a typical day when you are drinking? How often do you have six or more drinks on one Not asked occasion? Sex Assigned at Date Recorded Not on file Industry Job Start Date Occupation Not on file Not on file Not on file Travel End Travel History Travel Start No recent travel history available. Last Filed Vital Signs Time Taken Vital Sign Reading 05/24/2018 10:50 AM CDT Blood Pressure 129/69 05/24/2018 10:50 AM CDT Pulse 55 05/24/2018 10:50 AM CDT Temperature 36.3 C (97.3 F) 05/24/2018 10:50 AM CDT Respiratory Rate 19 05/24/2018 10:50 AM CDT Oxygen Saturation 98% - Inhaled Oxygen - Concentration 05/21/2018 10:52 PM CDT Weight 88.9 kg (196 lb) 05/21/2018 10:52 PM CDT Height 167.6 cm (5' 6") 05/21/2018 10:52 PM CDT Body Mass Index 31.64 Plan of Treatment Not on file Procedures Comments Procedure Name Priority Date/Time Associated Diagnosis RHYTHM STRIP - SCAN 05/26/2018 7:51 AM CDT REPORT OF PROCEDURE - 05/26/2018 ENDOSCOPY SCAN 7:51 AM CDT RHYTHM STRIP - SCAN 05/26/2018 7:51 AM CDT POCT-GLUCOSE METER Routine 05/24/2018 1:30 PM CDT POCT-GLUCOSE METER Routine 05/24/2018 7:03 AM CDT CBC W/PLT COUNT & AUTO Routine 05/24/2018 DIFFERENTIAL 4:50 AM CDT CBC W/PLT COUNT & AUTO Routine 05/24/2018 DIFFERENTIAL 4:50 AM CDT BASIC METABOLIC PANEL (7) Routine 05/24/2018 4:50 AM CDT POCT-GLUCOSE METER Routine 05/23/2018 9:06 PM CDT POCT-GLUCOSE METER Routine 05/23/2018 5:13 PM CDT POCT-GLUCOSE METER Routine 05/23/2018 11:31 AM CDT POCT-GLUCOSE METER Routine 05/23/2018 7:25 AM CDT CBC W/PLT COUNT & AUTO Routine 05/23/2018 DIFFERENTIAL 4:58 AM CDT CBC W/PLT COUNT & AUTO Routine 05/23/2018 DIFFERENTIAL 4:58 AM CDT BASIC METABOLIC PANEL (7) Routine 05/23/2018 4:58 AM CDT POCT-GLUCOSE METER Routine 05/23/2018 12:26 AM CDT POCT-GLUCOSE METER Routine 05/22/2018 9:24 PM CDT POCT-GLUCOSE METER Routine 05/22/2018 6:21 PM CDT TRANSFUSION SERVICE 05/22/2018 REPORT - SCAN 6:00 PM CDT POCT-GLUCOSE METER Routine 05/22/2018 12:02 PM CDT POCT-GLUCOSE METER Routine 05/22/2018 6:46 AM CDT CBC W/PLT COUNT & AUTO Routine 05/22/2018 DIFFERENTIAL 3:33 AM CDT HEMOGLOBIN A1C Routine 05/22/2018 3:33 AM CDT CBC W/PLT COUNT & AUTO Routine 05/22/2018 DIFFERENTIAL 3:33 AM CDT BASIC METABOLIC PANEL (7) Routine 05/22/2018 3:33 AM CDT POCT-GLUCOSE METER Routine 05/22/2018 12:15 AM CDT POCT-GLUCOSE METER Routine 05/21/2018 9:20 PM CDT LACTIC ACID, VENOUS STAT 05/21/2018 6:40 PM CDT BLOOD CULTURE STAT 05/21/2018 6:39 PM CDT BLOOD CULTURE STAT 05/21/2018 6:39 PM CDT LACTIC ACID, VENOUS STAT 05/21/2018 4:40 PM CDT BASIC METABOLIC PANEL (7) STAT 05/21/2018 4:40 PM CDT POCT-GLUCOSE METER Routine 05/21/2018 4:00 PM CDT CRITICAL CARE Routine 05/21/2018 3:53 PM CDT POCT-GLUCOSE METER Routine 05/21/2018 2:46 PM CDT LACTIC ACID, VENOUS STAT 05/21/2018 2:08 PM CDT ABORH, MANUAL Routine 05/21/2018 1:46 PM CDT BASIC METABOLIC PANEL (7) STAT 05/21/2018 1:46 PM CDT OSMOLALITY, SERUM STAT 05/21/2018 1:32 PM CDT TYPE AND SCREEN, STAT 05/21/2018 AUTOMATED 12:29 PM CDT PHOSPHORUS STAT 05/21/2018 11:20 AM CDT MAGNESIUM STAT 05/21/2018 11:20 AM CDT LIPASE STAT 05/21/2018 11:20 AM CDT HEPATIC FUNCTION PANEL STAT 05/21/2018 11:20 AM CDT KETONE, BLOOD STAT 05/21/2018 11:20 AM CDT BLOOD GAS, VENOUS STAT 05/21/2018 11:20 AM CDT XR CHEST 1 VIEW STAT 05/21/2018 PORTABLE/BEDSIDE 11:14 AM CDT ECG 12-LEAD STAT 05/21/2018 11:11 AM CDT ED ECG INTERPRETATION Routine 05/21/2018 10:52 AM CDT CBC W/PLT COUNT & AUTO STAT 05/21/2018 DIFFERENTIAL 10:33 AM CDT RAPID CK-MB STAT 05/21/2018 10:33 AM CDT RAPID TROPONIN I STAT 05/21/2018 10:33 AM CDT BASIC METABOLIC PANEL (7) STAT 05/21/2018 10:33 AM CDT CBC W/PLT COUNT & AUTO STAT 05/21/2018 DIFFERENTIAL 10:33 AM CDT URINALYSIS W/ REFLEX STAT 05/21/2018 URINE CULTURE 10:33 AM CDT REPORT OF PROCEDURE - 04/05/2018 ENDOSCOPY URL 3:03 PM FIRE CONTROL MECHANIC FINE NEEDLE ASPIRATE Routine 04/05/2018 (FNA) REQUEST 2:57 PM FIRE CONTROL MECHANIC FINE NEEDLE ASPIRATION BY AP Routine 04/05/2018 CLINICIAN 2:57 PM FIRE CONTROL MECHANIC TISSUE EXAM AP Routine 04/05/2018 2:38 PM FIRE CONTROL MECHANIC UPPER ENDOSCOPY,BIOPSY 04/05/2018 Abnormal findings on 2:30 PM FIRE CONTROL MECHANIC diagnostic imaging of digestive system Mass of pancreas Special Needs (LINEAR SCOPE) UPPER ENDOSCOPY,FNA 04/05/2018 Abnormal findings on W/ULTRASOUND 2:30 PM FIRE CONTROL MECHANIC diagnostic imaging of digestive system Mass of pancreas Special Needs (LINEAR SCOPE) after 06/27/2017 Results * RHYTHM STRIP - SCAN (05/26/2018 7:51 AM CDT) Only the most recent of 2 results within the time period is included. Narrative Performed At * EKG-SCANNED (05/26/2018 7:51 AM CDT) Narrative Performed At * POC-Glucose meter (05/24/2018 1:30 PM CDT) Only the most recent of 15 results within the time period is included. POC-Glucose Meter 182 (H)Comment: TESTED AT 70 - 110 mg/dL [facility] [address] [facility] [id number] Specimen Blood Performing Organization Address City/State/Zipcode Phone Number [address] [phone] [facility] * CBC with platelet count + automated diff (05/24/2018 4:50 AM CDT) Only the most recent of 4 results within the time period is included. WBC 8.8 3.5 - 10.5 K/L [facility] RBC 4.65 3.93 - 5.22 M/L [facility] Hemoglobin 11.9 11.2 - 15.7 GM/DL [facility] Hematocrit 35.9 34.1 - 44.9 % [facility] MCV 77.2 (L) 79.4 - 94.8 fL [facility] MCH 25.6 25.6 - 32.2 pg [facility] MCHC 33.1 32.2 - 35.5 GM/DL [facility] RDW 14.9 (H) 11.7 - 14.4 % [facility] Platelets 50 (L) 150 - 450 K/CU MM [facility] MPV Comment: Unable to report due 9.4 - 12.3 fL [facility] to abnormal Platelet [facility] population distribution. nRBC 0 0 - 0 /100 WBC [facility] % Neutros 66 % [facility] % Lymphs 26 % [facility] % Monos 7 % [facility] % Eos 0 % [facility] % Baso 0 % [facility] # Neutros 5.81 1.56 - 6.13 K/L [facility] # Lymphs 2.26 1.18 - 3.74 K/L [facility] # Monos 0.61 (H) 0.24 - 0.36 K/L [facility] # Eos 0.02 (L) 0.04 - 0.36 K/L [facility] # Baso 0.01 0.01 - 0.08 K/L [facility] Immature 1 0 - 1 % [facility] Granulocytes-Relative [facility] Specimen Blood - Arm, Right Performing Organization Address City/State/Zipcode Phone Number [facility] [address] [place] [address] MED[facility]ENTER * Basic metabolic panel (05/24/2018 4:50 AM CDT) Only the most recent of 6 results within the time period is included. Sodium 136 136 - 145 meq/L [facility] Potassium 3.3 (L) 3.5 - 5.1 meq/L [facility] Chloride 106 98 - 107 meq/L [facility] CO2 23 22 - 29 meq/L [facility] BUN 11 7 - 21 mg/dL [facility] Creatinine 0.73 0.57 - 1.25 mg/dL [facility] Glucose 189 (H) 70 - 105 mg/dL [facility] Calcium 8.8 8.4 - 10.2 mg/dL [facility] EGFR 93Comment: ESTIMATED GFR IS mL/min/1.73 sq m [facility] NOT ACCURATE CREATININE [facility] CLEARANCE IN PREDICTING GLOMERULAR FILTRATION RATE. ESTIMATED GFR IS NOT APPLICABLE FOR DIALYSIS PATIENTS. Specimen Blood - Arm, Right Performing Organization Address City/[facility]/Zipcode Phone Number [facility] [address] [place] [address] [facility] * TRANSFUSION SERVICE REPORT - SCAN (05/22/2018 6:00 PM CDT) Narrative Performed At * Hemoglobin A1c (05/22/2018 3:33 AM CDT) Hemoglobin A1C 9.6 (H) 4.3 - 6.1 % [facility] The Local [facility] Specimen Blood - Arm, Right Performing Organization Address [facility]/Zipcode Phone Number [facility] [address] [place], [place] [phone] * Lactic acid, venous, whole blood (05/21/2018 6:40 PM CDT) Only the most recent of 3 results within the time period is included. Lactate, Venous 1.6 0.5 - 2.2 mmol/L [facility] Specimen Blood Performing Organization Address City/[facility]/Zipcode Phone Number [facility] [address] [place] [address] [facility], [facility], [place] [facility] * Blood Culture - Routine (Left Venipuncture) (05/21/2018 6:39 PM CDT) Only the most recent of 2 results within the time period is included. Result No growth in 5 days [facility] Specimen Blood - Arm, Left Performing Organization Address [facility] Phone Number [address] * CRITICAL CARE (05/21/2018 3:53 PM CDT) Narrative Performed At Vinicio Casarez MD 05/21/20189:25 PM Critical Care Performed by: Vinicio Casarez MD Authorized by: Vinicio Casarez MD Total critical care time: 45 minutes Critical care time was exclusive of separately billable procedures and treating other patients. Critical care was necessary to treat or prevent imminent or life-threatening deterioration of the following conditions: dehydration, endocrine crisis, metabolic crisis and toxidrome. Critical care was time spent personally by me on the following activities: discussions with consultants, evaluation of patient's response to treatment, obtaining history from patient or surrogate, ordering and review of laboratory studies, re-evaluation of patient's condition, ordering and performing treatments and interventions, examination of patient, discussions with primary provider, development of treatment plan with patient or surrogate and pulse oximetry. * ABORH, manual (05/21/2018 1:46 PM CDT) ABO Grouping B [facility] Rh Factor POS [facility] Specimen Blood Performing Organization Address [facility] Phone Number [address] * Osmolality Serum (05/21/2018 1:32 PM CDT) Osmolality Serum 301 (H) 275 - 295 mOsm/kg [facility] Specimen Blood Performing Organization Address [facility]/Zipcode Phone Number [address] * Type and screen, automated ([facility] and [facility] only) (05/21/2018 12:29 PM CDT) ABO/RH AUTOMATED (BEAKER) B POSITIVE [facility] Ab Scrn NEGATIVE [facility] Specimen Blood Performing Organization Address City/[facility]/Zipcode Phone Number [facility] [address] [place] [address] [facility] * Phosphorus (05/21/2018 11:20 AM CDT) Phosphorus 3.2Comment: Specimen slightly 2.5 - 4.5 mg/dL [facility], [facility], [facility] Specimen Blood Performing Organization Address City/[facility] Phone Number [facility] [address] [place], [place] [phone] [facility], [facility], [facility] * Magnesium (05/21/2018 11:20 AM CDT) Magnesium 2.3Comment: Specimen slightly 1.5 - 3.0 mg/dL [facility], [facility], [facility] Specimen Blood Performing Organization Address City/[facility] Phone Number [address] [phone] [facility], [facility], [facility] * Lipase (05/21/2018 11:20 AM CDT) Lipase 238 40 - 240 U/L [facility], [facility], [facility] Specimen Blood Performing Organization Address City/[facility] Phone Number [address] [phone] [facility], [facility], [facility] * Blood gas, venous (05/21/2018 11:20 AM CDT) pH, Alex 7.41 7.32 - 7.42 [facility], [facility] pCO2, Alex 47 41 - 51 mm Hg [facility], [facility] pO2, Alex 19 (L) 25 - 40 mm Hg [facility], [facility] O2 Sat, Alex 28.6 (L) 40.0 - 70.0 % [facility], [facility] HCO3, Alex 29 21 - 29 mmol/L [facility], [facility] Base Excess, Alex 3.9 (H) -2.0 - 3.0 mmol/L [facility], [facility] Specimen Blood Performing Organization Address [facility] Phone Number [address] [phone] [facility], [facility] * Ketones, blood (05/21/2018 11:20 AM CDT) Ketones, Blood 0.8 (H) <0.4 mmol/L [facility] [place] [facility] Specimen Blood Performing Organization Address [facility] Phone Number [address] [phone] [facility], [facility] * Hepatic function panel (05/21/2018 11:20 AM CDT) Protein, Total 6.7Comment: Specimen slightly 6.0 - 8.5 gm/dL [facility], [facility] Albumin 3.8Comment: Specimen slightly 3.5 - 5.0 g/dL [facility] Total Bilirubin 1.0Comment: Specimen slightly 0.1 - 1.2 mg/dL [facility], [facility] Bilirubin, Direct 0.5 (H)Comment: Specimen 0.0 - 0.4 mg/dL [facility] slightly hemolyzed [facility], [facility] Alkaline Phosphatase 125 (H) 30 - 115 U/L [facility], [facility] AST 23Comment: Specimen slightly 5 - 40 U/L [facility] hemolyzed [facility], [facility], [facility] ALT 17Comment: Specimen slightly 5 - 50 U/L [facility] hemolyzed [facility], [facility], [facility] Specimen Blood Performing Organization Address City/State/Zipcode Phone Number BECKY MOTLEY [address] [place], [place] [phone] [facility], [facility], [facility] * XR chest 1 view portable / bedside (05/21/2018 11:14 AM CDT) Narrative Performed At FINAL REPORT [facility] Chest, AP view. History: Urinary frequency. Comparison: None available. Discussion: Heart size upper limits of normal. There is thoracic aortic ectasia. The lungs are clear without evidence of consolidation or effusion.There are no acute osseous abnormalities. The soft tissues are unremarkable. IMPRESSION: No acute cardiopulmonary abnormality. Signed: Jemma Morgan MD Report Verified Date/Time:05/21/2018 11:22:33 Reading Location: [address] Transitional Reading Room Procedure Note Interface, External Ris In - 05/21/2018 11:24 AM CDT FINAL REPORT Chest, AP view. History: Urinary frequency. Comparison: None available. Discussion: Heart size upper limits of normal. There is thoracic aortic ectasia. The lungs are clear without evidence of consolidation or effusion. There are no acute osseous abnormalities. The soft tissues are unremarkable. IMPRESSION: No acute cardiopulmonary abnormality. Signed: Jemma Morgan MD Report Verified Date/Time: 05/21/2018 11:22:33 Reading Location: [facility] C013 Transitional Reading Room Performing Organization Address City/State/Zipcode Phone Number RIS * ECG 12 lead (05/21/2018 11:11 AM CDT) Narrative Performed At Ventricular Rate 60 BPM GE MUSE Atrial Rate 60 BPM P-R Interval 154 ms QRS Duration 90 ms Q-T Interval 424 ms QTC Calculation(Bazett) 424 ms P [place] 26 degrees R [place] -26 degrees T [place] 47 degrees Normal sinus rhythm with sinus arrhythmia Normal ECG No previous ECGs available Confirmed by MD MANUEL JOSEPH P ([id number]) on 05/22/2018 6:50:48 AM Procedure Note Interface, External Ris In - 05/22/2018 6:50 AM CDT Ventricular Rate 60 BPM Atrial Rate 60 BPM P-R Interval 154 ms QRS Duration 90 ms Q-T Interval 424 ms QTC Calculation(Bazett) 424 ms P [place] 26 degrees R [place] -26 degrees T [place] 47 degrees Normal sinus rhythm with sinus arrhythmia Normal ECG No previous ECGs available Confirmed by MD MANUEL JOSEPH P ([id number]) on 05/22/2018 6:50:48 AM Performing Organization Address City/State/Zipcode Phone Number GE M[facility] * ECG/EKG Interpretation (05/21/2018 10:52 AM CDT) Narrative Performed At Loretta Monae MD 05/21/20183:26 PM ECG/EKG Interpretation Date/Time: 05/21/2018 12:11 PM Performed by: Loretta Monae MD Authorized by: Loretta Monae MD The ECG was interpreted by ED physician. This ECG was not compared with previous ECG(s).There was no previous ECG available for comparison. The ECG is interpreted as sinus rhythm. Rate is normal rate. Heart rate is 60 BPM. Conduction: conduction normal. ST segments normal. T waves normal. [place] is normal. Other findings: no other findings. ECG reviewed and does not meet STEMI criteria. Patient tolerance: Patient tolerated the procedure well with no immediate complications * Urinalysis w/Microscopic + Reflex to Culture (05/21/2018 10:33 AM CDT) Color, UA Yellow [facility], [facility], [facility] Clarity, UA Clear [facility], [facility], [facility] Specific [place], UA 1.003Comment: Read from 1.001 - 1.035 [facility] refractometer. [facility], [facility], [facility] pH, UA 5.0 5.0 - 8.0 [facility], [facility], [facility] Protein, UA Negative Negative [facility], [facility] Glucose, UA >=1000 mg/dL (A) Negative [facility], [facility], [facility] Ketones, UA Negative Negative [facility], [facility] Bilirubin, UA Negative Negative [facility], [facility] Blood, UA Trace (A) Negative [facility], [facility], [facility] Nitrite, UA Negative Negative [facility], [facility] Leukocytes, UA Negative Negative [facility], [facility] Urobilinogen, UA 0.2 0.2 - 1.0 mg/dL [facility], [facility] Bacteria, UA Few [facility], [facility] Yeast Occasional [facility], [facility] RBC, UA <5 /HPF [facility] WBC, UA None Seen /HPF [facility] [facility] SQUAMOUS EPITHELIAL <5 /HPF [facility] Specimen Source [facility] Specimen Urine - Urine, Clean Catch Performing Organization Address City/State/Zipcode Phone Number [facility] [address] [place] [address] [facility] [facility] * Rapid Troponin I ([facility] Only) (05/21/2018 10:33 AM CDT) Rapid Troponin I <0.05 <0.05 ng/mL [facility] [place] [place] [facility] Specimen Blood Performing Organization Address City/[facility]/Zipcode Phone Number [facility] [address] [place] [address] [facility], [facility] [place] [place] [facility] * Rapid CK-MB ([facility] Only) (05/21/2018 10:33 AM CDT) Rapid CKMB 1.6 0.0 - 4.3 ng/mL [facility], [facility] [place] Specimen Blood Performing Organization Address City/[facility]/Zipcode Phone Number [facility] [address] [place] [address] [facility], [facility] [place] [facility] * REPORT OF PROCEDURE - ENDOSCOPY URL (04/05/2018 3:03 PM FIRE CONTROL MECHANIC) Narrative Performed At * FINE NEEDLE ASPIRATE (FNA) REQUEST (04/05/2018 2:57 PM FIRE CONTROL MECHANIC) Cytology See Separate Report [facility] Specimen Fine Needle Aspirate - Pancreas, Head Performing Organization Address City/[facility] Facility[facility] Phone Number [address] [address] [facility] * Fine Needle Aspirate by Clinician (04/05/2018 2:57 PM FIRE CONTROL MECHANIC) Case Report Medical Cytology [facility] Report [facility] Case: [id number] Authorizing Provider:Theodora Szymanski MDCollected: 04/05/2018 1457 Ordering Location: [facility] Endoscopy Received: 04/06/2018 1120 Services Pathologist: Maral Quezada MD Specimen:Pancreas, Head DIAGNOSIS PANCREAS HEAD MASS FNA BY [facility] CLINICIAN (CYTOSPINS AND CELL [facility] BLOCK OF ASPIRATE): - ADENOCARCINOMA Signing Pathologist Direct Phone Line: [phone] CPT Code(s) 39204, 61314 [facility] CLINICAL DATA (2.4 X 2.2 cm) irregular mass [facility] in the pancreatic head [facility] SPECIMEN SOURCE PANCREAS HEAD MASS FNA [facility] GROSS DESCRIPTION 30 mls in cytorich red; 4 [facility] cytospins, cell block [facility] Collected: [id number] Received: [id number] Gross assessment was [facility] performed at [place], Department of [facility] Pathology, [address] [place] [address], Technical component was [facility] performed at [place], Department of [facility] Pathology, [address] [place] [address], Professional component [facility] was performed at [place], Department of [facility] Pathology, [address] [place] [address], Specimen Fine Needle Aspirate - Pancreas, Head Narrative Performed At Performing Organization Address City/State/Zipcode Phone Number [address] [id number] [facility] * Tissue Exam (04/05/2018 2:38 PM FIRE CONTROL MECHANIC) Case Report Surgical Pathology [facility] Report [facility] Case: [id number] Authorizing Provider:Theodora Szymanski MDCollected: 04/05/2018 1438 Ordering Location: [facility] Endoscopy Received: 04/05/2018 1610 Services Pathologist: Maral Quezada MD Specimen:Biopsy, Gastric, GASTRIC BX DIAGNOSIS STOMACH, ENDOSCOPIC BIOPSY: [facility] - CHRONIC ACTIVE GASTRITIS, [facility] [employer] - [employer] ORGANISMS SEEN ON WARTHIN-STARRY STAIN - NO INTESTINAL METAPLASIA, DYSPLASIA OR MALIGNANCY SEEN Signing Pathologist Direct Phone Line: [phone] CPT Code(s) 53795; 11757 [facility] CLINICAL HISTORY Abnormal findings on [facility] diagnostic imaging of [facility] digestive system, mass of pancreas SPECIMEN SOURCE Gastric biopsy [facility] GROSS DESCRIPTION Specimen is received in [facility] formalin-filled container [facility] labeled with the patient's information and labeled "gastric biopsy" and consists of four fragments of damian tissue ranging from 0.1 to 0.3 cm submitted entirely A1. CG/bc SPECIAL STUDIES The interpretation of this [facility] case included the use of [facility] immunohistochemistry or special stains. DAYDAY Immunohistochemistry technical testing was performed at [facility]ology Laboratory where it was developed and its performance characteristics were determined. It has not been cleared or approved by the U.S. Food and Drug Administration. The FDA has determined that such clearance or approval is not necessary. The test is used for clinical purposes. It should not be regarded as investigational or for research. This laboratory is certified under the Clinical Laboratory Improvement Amendments of 1988 (CLIA-88) as qualified to perform high complexity clinical laboratory testing. Specimen Tissue - Biopsy, Gastric Performing Organization Address City/State/Zipcode Phone Number [facility] [address] [place] [address] [facility] after 06/27/2017 Insurance Payer Benefit Subscriber ID Type Phone Address Plan / Group [employer] TEX[employer] xxxxxxxxx [facility] ALL Contracted (Home) [place] [address] Advance Directives For more information, please contact: [place] [phone] [place], [place] [phone] Date Inactivated Comments Code Status Date Activated 05/24/2018 5:26 PM Full Code 05/22/2018 12:02 AM This code status was determined by: Patient
--- OUTSIDE RECORDS SUMMARY | 2018-06-28 10:35 | XMS REPORT | Clinical Summary ---
Author Author [facility] Organization [facility] Address Unknown Phone Unavailable Care Team Providers Care Physical Trainer Name Role Phone PCP Unavailable Allergies No [...] 02/22/2018 Emergency Emergency Medicine 02/22/2018 Travel after 06/27/2017 Social History Date Tobacco Use Types Packs/Day [...] Taken Vital Sign Reading 02/22/2018 12:00 PM [employer] Blood Pressure 170/102 02/22/2018 12:00 PM [employer]IVER Pulse 52 02/22/2018 12:00 PM [employer]IVER Temperature 36.8 C (98.3 F) 02/22/2018 12:00 PM [employer]IVER Respiratory Rate 13 02/22/2018 12:00 PM [employer]ON DRIVER Oxygen Saturation 97% - Inhaled Oxygen - Concentration - Weight - - Height - - Body Mass Index - Plan of Treatment Health Maintenance Due Date Last Done Comments IMM Pneumococcal Age 65 2002 and Up IMM Influenza Seasonal 12/12/2018 Oct to May (>/=19 yrs) Procedures Comments Procedure Name Priority Date/Time Associated Diagnosis CT ABDOMEN AND PELVIS STAT 02/22/2018 Generalized abdominal CONTRAST 9:05 AM [employer]IVER pain XRAY NECK SOFT TISSUE STAT 02/22/2018 Carpal tunnel syndrome of 8:36 AM [employer] left wrist TROPONIN I POC Routine 02/22/2018 7:10 AM [employer]IVER XRAY CHEST 1 VIEW STAT 02/22/2018 Generalized abdominal 6:35 AM [employer]IVER pain 12 LEAD EKG Routine 02/22/2018 5:43 AM [employer] AND WAGON DRIVER TSH Routine 02/22/2018 5:29 AM [employer]ON DRIVER HIV-1/HIV-2 ROUTINE Routine 02/22/2018 SCREENING 5:29 AM [employer] AND WAGON DRIVER UA CHEMISTRIES STAT 02/22/2018 5:29 AM [employer] AND WAGON DRIVER LIPASE STAT 02/22/2018 5:29 AM [employer]OR[employer] AND WAGON DRIVER COMPREHENSIVE METABOLIC STAT 02/22/2018 PANEL(DBIL NOT INCLUDED) 5:29 AM [employer] AND [employer]AGON DRIVER CBC STAT 02/22/2018 5:29 AM HORSE AND WAGON 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 IV contrast: 100 ml [id number] Enteric contrast: None. DLP: 957.28 mGy-cm FINDINGS: [...] Interface, Rad/Mammog In - 02/22/2018 9:46 AM [employer] AND [employer]ON DRIVER EXAM: CT ABDOMEN AND PELVIS WITH CONTRAST DATE: 02/22/2018 9:07 AM INDICATION: abd pain constipation nausea. Generalized abdominal pain ADDITIONAL INFORMATION: Lipase is 1072, upper limit of normal is 81. COMPARISON: None. TECHNIQUE: Volumetric CT of the abdomen and pelvis is acquired following the intravenous administration of contrast. Axial, coronal and sagittal images are provided. IV contrast: 100 ml [id number] Enteric contrast: None. DLP: 957.28 mGy-cm FINDINGS: [...] XRAY NECK SOFT TISSUE (02/22/2018 8:36 AM HOR[employer] AND WAGON DRIVER) Impressions Performed At IMPRESSION: SMS 1.No acute [...] Interface, Rad/Mammog In - 02/22/2018 8:45 AM [employer] AND WAGON DRIVER EXAM: XR NECK SOFT TISSUES 2 VIEWS [...] MD, 02/22/2018 8:40 AM Performing Organization Address City/State/[facility] Phone Number SMS * TROPONIN I POC (02/22/2018 7:10 AM HORSE AND WAGON DRIVER) Troponin POC 0.01 0.00 - 0.08 ng/mL [facility] 1 Performing Organization Address [facility] Phone Number MISYS [facility] * XRAY CHEST 1 VIEW (02/22/2018 6:35 AM HOR[employer] AND WAGON DRIVER) Impressions Performed At IMPRESSION: SMS 1. Mild cardiomegaly 2. Hyperinflation of the lung field and left lower lung field platelike atelectasis 3. Otherwise, no acute cardiac or pulmonary pathology is identified in the chest. Signed By: Tucker Back MD, 02/22/2018 6:41 AM Narrative Performed At EXAM: XR CHEST 1 VIEW [facility] DATE:02/22/20186:28 AM INDICATION: abd pain Generalized [...] Interface, Rad/Mammog In - 02/22/2018 7:07 AM H[employer] AND WAGON DRIVER EXAM: XR CHEST 1 VIEW DATE: 02/22/2018 [...] AM Performing Organization Address City/State/Zipcode Phone Number [facility] * 12 LEAD EKG (02/22/2018 5:43 AM H[employer] AND WAGON DRIVER) [facility] LEAD [facility] Date:2018-02-22 Pat Name: SOLO SHARIF Department: [id number] Room: Gender: F 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 :1936-0 06-05 Requested By: EMILY Brady Order Number: [id number] Natalie MD: Kvng CROFT Measurements Intervals [place] Rate: 55 P:3 MD: 180 QRS: -10 QRSD: 95 T:121 QT: 415 QTc:398 Interpretive Statements SINUS BRADYCARDIA Poor anterior R wave progression MODERATE T-WAVE ABNORMALITY, CONSIDER LATERAL ISCHEMIA Abnormal ECG Electronically Signed On 02-22-2018 9:45:15 H[employer]ON DRIVER by Kvng CROFT Performing Organization Address [facility] Phone Number SMS * HIV-1/HIV-2 ROUTINE SCREENING (02/22/2018 5:29 AM H[employer]SE AND WAGON DRIVER) HIV-1/HIV-2 Negative NEG [facility] Performing Organization Address [facility] Phone Number MISMICK [facility] * COMPREHENSIVE METABOLIC PANEL(DBIL NOT INCLUDED) (02/22/2018 5:29 AM HORSE AND WAGON DRIVER) Albumin 3.9 3.7 - 5.3 g/dL [facility] 1 Calcium 9.9 8.6 - 10.3 mg/dL [facility] 1 CO2 29 21 - 31 mmol/L [facility] 1 Chloride 101 98 - 107 mmol/L [facility] 1 Creatinine 0.90 0.6 - 1.2 mg/dL [facility] 1 Glucose 124 (H) 70 - 110 mg/dL [facility] 1 Alk Phos 86 34 - 104 U/L [facility] 1 Potassium 3.9 3.5 - 5.1 mmol/L [facility] 1 Sodium 136 136 - 145 mmol/L [facility] 1 ALT 9 7 - 52 U/L [facility] 1 AST 12 (L) 13 - 39 U/L [facility] 1 Urea Nitrogen 19 7 - 25 mg/dL [facility] 1 T Bilirubin 0.3 0.2 - 1.0 mg/dL [facility] 1 T Protein 6.8 6.4 - 8.2 g/dL [facility] 1 GFR, Estimated >60 mL/min/1.73 m2 [facility] 1 GFR, Estim, >60 mL/min/1.73 m2 [facility] 1 Anion Gap 6 [facility] 1 Specimen Blood Performing Organization Address [facility] Phone Number MISYS [facility] 1 * TSH (02/22/2018 5:29 AM H[employer] DRIVER) TSH 1.85 0.57 - 3.74 uIU/mL [facility] 1 Performing Organization Address City/[facility]/Zipcode Phone Number MISYS [facility] 1 * UA CHEMISTRIES (02/22/2018 5:29 AM H[employer] AND W[employer]ON DRIVER) Color Yellow [facility] 4 Clarity Clear [facility] 4 Spec [place] 1.020 1.001 - 1.035 [facility] 4 [...] [facility]IN-[facility] 4 Specimen Urine Performing Organization Address [facility] Phone Number [facility] 4 * LIPASE (02/22/2018 5:29 AM H[employer]SE AND WAGON DRIVER) Lipase 1,072 (H) 11 - 81 U/L [facility] 1 Specimen Blood Performing Organization Address [facility] Phone Number [facility] * CBC (02/22/2018 5:29 AM HORSE AND WAGON DRIVER) WBC 6.1 4.5 - 11.0 K/uL [facility] [...] Blood Performing Organization Address City/State/Zipcode Phone Number MISYS [facility] 2 after 06/27/2017
[2018-06-28] MEDS ORDERED: HYDROCODONE/APAP 10MG-325MG TAB PO ONE (10:45)
[2018-06-28] MEDS ORDERED: TRAMADOL HCL 50 MG TAB PO ONE (11:00)
== END 2018-06-28 11:05 | disposition left against medical advice (07) ==
LOC: ER 10:33
DX: R52 Pain, unspecified (principal)